=== PATIENT | female | born 2000 | race African-American/Black ===

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

== ENCOUNTER 2021-02-03 17:14 | Emergency (ER) | payer OTHER ==
[2021-02-03 17:45] VITALS: BP 124/85; PULSE 81; TEMP 98.8; BMI 29.5
== END 2021-02-03 19:30 | disposition home or self-care (01) ==
LOC: JER 17:14 → JERFT 17:14
DX: G47.53 Recurrent isolated sleep paralysis (principal)
CPT/HCPCS: 99283-25

== ENCOUNTER 2022-01-04 16:05 | Emergency (ER) | payer OTHER ==
[2022-01-04 16:20] VITALS: BP 118/76; PULSE 64; TEMP 98.1; BMI 32.8
[2022-01-04 17:55] LABS: BASO % 0.9 % (0-2.0); EOS % 0.8 % (0-4.5); HEMATOCRIT 31.3 % (32.4-45.2); HEMOGLOBIN 9.6 GM/dL (10.7-15.3); LYMPH % 33.7 % (8-40); MCH 21.7 pg (25.7-33.7); MCHC 30.7 g/dl (32.0-36.0); MEAN CELL VOLUME 70.8 fl (80-96); MEAN PLT VOLUME 7.9 fl (7.5-11.1); MONO % 9.6 % (3.8-10.2); PLATELET COUNT 532 10^3/uL (134-434); RBC 4.42 M/mm3 (3.60-5.2); RDW 18.6 % (11.6-15.6); WHITE BLOOD COUNT 5.9 K/mm3 (4.0-10.0)
[2022-01-04 19:29] LABS: ANISOCYTOSIS 2+; MACROCYTOSIS 1+; OVALOCYTE 1+
== END 2022-01-04 18:40 | disposition home or self-care (01) ==
LOC: JER 16:05
DX: D75.838 Other thrombocytosis (principal)
CPT/HCPCS: 36415; 85025; 99283-25

== ENCOUNTER 2022-11-30 17:11 | Emergency (ER) | payer OTHER ==
[2022-11-30 17:16] VITALS: BP 125/76; PULSE 87; RESP 18; TEMP 97; BMI 31.0
[2022-11-30 20:25] LABS: BASO % 1.1 % (0-2.0); EOS % 2.1 % (0-4.5); HEMATOCRIT 32.7 % (32.4-45.2); HEMOGLOBIN 10.6 GM/dL (10.7-15.3); LYMPH % 30.6 % (8-40); MCH 22.3 pg (25.7-33.7); MCHC 32.3 g/dl (32.0-36.0); MEAN CELL VOLUME 68.9 fl (80-96); MEAN PLT VOLUME 7.9 fl (7.5-11.1); MONO % 9.4 % (3.8-10.2); NEUT % 56.8 % (42.8-82.8); PLATELET COUNT 511 10^3/uL (134-434); RBC 4.75 M/mm3 (3.60-5.2); RDW 21.8 % (11.6-15.6); WHITE BLOOD COUNT 7.8 K/mm3 (4.0-10.0)
[2022-11-30 20:51] LABS: ANISOCYTOSIS 3+; MACROCYTOSIS 0; OVALOCYTE 1+
[2022-11-30 20:57] LABS: ALBUMIN 3.8 g/dl (3.4-5.0); BLOOD UREA NITROGEN 10.8 mg/dL (7-18)
[2022-11-30 21:00] LABS: CREATININE 0.8 mg/dL (0.55-1.3)
[2022-11-30 21:02] LABS: BILIRUBIN,TOTAL 0.2 mg/dL (0.2-1); TOT PROT 8.2 g/dl (6.4-8.2)
== END 2022-12-01 00:21 | disposition home or self-care (01) ==
LOC: JER 17:11
DX: R00.2 Palpitations (principal)
CPT/HCPCS: 0241U-QW; 36415; 71046-TC-FY; 71275-TC; 80053; 84443; 84484; 84702; 85025; 85379; 93005; 93010; 93308; 99285-25; Q9967

== ENCOUNTER 2024-10-30 12:48 | Emergency (ER) | payer OTHER ==
[2024-10-30 13:06] VITALS: BP 121/79; PULSE 79; RESP 17; TEMP 99.3; BMI 36.9
[2024-10-30 16:05] LABS: BASO % 0.7 % (0-2.0); EOS % 0.7 % (0-4.5); HEMATOCRIT 33.7 % (32.4-45.2); HEMOGLOBIN 10.5 GM/dL (10.7-15.3); LYMPH % 36.9 % (8-40); MCH 22.7 pg (25.7-33.7); MEAN PLT VOLUME 7.8 fl (7.5-11.1); MONO % 7.8 % (3.8-10.2); NEUT % 53.9 % (42.8-82.8); PLATELET COUNT 525 10^3/uL (134-434); RBC 4.61 M/mm3 (3.60-5.2); RDW 18.6 % (11.6-15.6); WHITE BLOOD COUNT 7.4 K/mm3 (4.0-10.0)
[2024-10-30 16:19] LABS: POTASSIUM 4.5 mmol/L (3.5-5.1)
[2024-10-30 16:21] LABS: ALBUMIN 3.7 g/dl (3.4-5.0); BLOOD UREA NITROGEN 11.4 mg/dL (7-18); CALCIUM 9.1 mg/dL (8.5-10.1)
[2024-10-30 16:25] LABS: CREATININE 0.7 mg/dL (0.55-1.3)
[2024-10-30 16:26] LABS: BILIRUBIN,TOTAL 0.4 mg/dL (0.2-1); TOT PROT 7.8 g/dl (6.4-8.2)
[2024-10-30 17:16] LABS: HIV INTERPRETATION NEGATIVE (NEGATIVE)
[2024-10-30] MEDS: SODIUM CHLORIDE 1,000 ML IV STA (19:32)
== END 2024-10-30 20:57 | disposition home or self-care (01) ==
LOC: JER 12:48
PROC: 3E0337Z Introduction of Electrolytic and Water Balance Substance into Peripheral Vein, Percutaneous Approach (ICD-10-PCS; principal; 2024-10-30)
DX: D75.839 Thrombocytosis, unspecified (principal)
CPT/HCPCS: 36415; 80053; 85025; 86803; 87389; 93005; 93010; 99284-25